=== PATIENT | female | born 1980 | race Caucasian/White ===

== ENCOUNTER → 2018-07-22 | Outpatient (REF) | payer OTHER ==
[2018-07-22 19:10] LABS: CONTROL LINE HCG INT CTR LINE PRESENT; HCG, SERUM QUALITATIVE NEGATIVE (NEGATIVE)
== END ==
LOC: M LAB REF 16:56
DX: N94.89 Other specified conditions associated with female genital organs and menstrual cycle (principal)

== ENCOUNTER → 2018-12-10 | Outpatient (REF) | payer BC | LOC: M WUC 10:34 | PROVIDERS: ATTEND Physician Assistant | DX: J02.9 Acute pharyngitis, unspecified (principal) ==

== ENCOUNTER → 2021-05-11 | Outpatient (REF) | payer OTHER | LOC: M LAB REF 18:45 | PROVIDERS: ATTEND Otolaryngology | DX: K13.70 Unspecified lesions of oral mucosa (principal) ==

== ENCOUNTER → 2021-05-25 | Outpatient (CLI) | payer OTHER ==
[~2021-05-25] MED LIST: BARIUM SULFATE 700 MG TABLET (E-Z-DISK) As Ordered ONE; E-Z-PAQUE 96% w/w SUSP 176GM BTL As Ordered ONE; VARIBAR NECTAR 40% w/v 240ML SUSP BTL As Ordered ONE; VARIBAR PUDDING 40% w/v 230ML TUBE As Ordered ONE
--- NOTE | 2021-05-25 16:47 | REP ---
INDICATION: R13.10 DYSPHAGIA. COMPARISON: NONE TECHNIQUE: The procedure was performed under the direct supervision of . The procedure was performed with Vane Gomez from speech pathology present. 0.9 minutes of fluoroscopy time was utilized for this procedure. FINDINGS: 5 cc aliquots of thin, pudding, mixed fruit, soft and solid consistency barium was administered. There is no evidence of penetration or aspiration. IMPRESSION: There is no evidence of penetration or aspiration. A detailed report of this examination will be provided by speech pathology. <Electronically signed by Faizan Schulz > 05/25/21 1531 <Electronically signed by Cory Duran > 05/25/21 1185
== END ==
LOC: M RAD 09:14
PROVIDERS: ATTEND Registered Nurse
DX: R13.10 Dysphagia, unspecified (principal)

== ENCOUNTER → 2022-04-10 | Outpatient (REF) | payer OTHER ==
[2022-04-10 17:39] LABS: C REACTIVE PROTEIN QUANTITATIV 1.35 MG/DL (0.00-0.30)
[2022-04-10 18:20] LABS: VITAMIN B12 LEVEL 294 PG/ML (247-911)
[2022-04-10 18:30] LABS: HEPATITIS B SURFACE ANTIGEN NEGATIVE (NEGATIVE)
[2022-04-10 18:59] LABS: HEPATITIS B CORE ANTIBODY IGM NEGATIVE (NEGATIVE)
[2022-04-11 11:45] LABS: DRVV SCREEN 32.1 SEC
[2022-04-11 11:49] LABS: PTT LUPUS TYPE ANTICOAG SCREEN 0.9 (0-1.2)
== END ==
LOC: M LAB REF 16:02
PROVIDERS: ATTEND Nurse Practitioner Adult Health
DX: M25.50 Pain in unspecified joint (principal)

== ENCOUNTER → 2023-09-25 | Outpatient (REF) | payer OTHER | LOC: M LAB REF 11:49 | PROVIDERS: ATTEND Nurse Practitioner Adult Health | DX: M79.10 Myalgia, unspecified site (principal); M17.9 Osteoarthritis of knee, unspecified ==

== ENCOUNTER → 2024-06-29 | Outpatient (REF) | payer OTHER | LOC: M LAB REF 16:28 | PROVIDERS: ATTEND Nurse Practitioner Adult Health | DX: M17.9 Osteoarthritis of knee, unspecified (principal); M79.10 Myalgia, unspecified site ==

== ENCOUNTER → 2024-07-03 | Outpatient (CLI) | payer OTHER | LOC: M WUC 12:36 | PROVIDERS: ATTEND Nurse Practitioner Adult Health | DX: M79.604 Pain in right leg (principal); M79.605 Pain in left leg ==